=== PATIENT | male | born 1945 | race Caucasian/White ===

== ENCOUNTER 2024-10-19 18:26 | Inpatient (IN) | payer OTHER, SELFPAY ==
[2024-10-19] VITALS (10 sets, daily range): BP systolic 103–150; BP diastolic 55–82; BMI 25.3; BMI 24.7
[2024-10-19 12:28] LABS: Hematocrit 44.5 % (39.0-52.0); Hemoglobin 14.9 g/dL (13.0-18.0); Mean Corp Hgb Conc. 33.5 g/dL (33.0-37.0); Mean Corpuscular Volume 91.0 fL (80.0-94.0); Nucleated Red Blood Cells % 0 % (-); Platelet Count 204 10^3/uL (130-400); Red Cell Dist. Width 12.6 % (11.5-14.5)
[2024-10-19 12:52] LABS: ALT (SGPT) 17 U/L (0-50); AST (SGOT) 24 U/L (17-59); Albumin 4.6 g/dl (3.5-5.0); Alkaline Phosphatase 53 U/L (38-126); Blood Urea Nitrogen 26 mg/dl (9-20); Calcium 10.4 mg/dl (8.4-10.2); Carbon Dioxide 24 mmol/L (22-30); Chloride 106 mmol/L (98-107); Glucose 135 mg/dl (70-99); Potassium 4.7 mmol/L (3.5-5.1); Sodium 140 mmol/L (135-145); Total Protein 7.2 g/dl (6.3-8.2); eGFR > 60.00
[2024-10-19 13:02] LABS: Troponin I 0.120 ng/ml
--- NOTE | 2024-10-19 13:51 | ED.GENMED ---
History of Present Illness
General
Chief Complaint: Dizziness
Time Seen by Provider: 10/19/24 13:43
Nursing documentation reviewed up to this point in time: agreed with
History of Present Illness
History of Present Illness:
No 79-year-old male presents to the ER for evaluation of chest pain and dizziness which started this morning. 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 He states that at 530 this morning she required his assistance to get back
into bed. While he was helping her he noted dull ache in his left side of his chest along with a feeling of unsteadiness. He took 2 aspirin and laid back down. Upon awakening a few hours later he was still having the discomfort but thought that
it would resolve. He has no prior personal history of ACS or arrhythmia. He does take Plavix chronically, no other blood thinners. He denies any recent cough or cold symptoms. No visual changes. No paresthesias to arms or legs. He has chronic
limitation in movement of his right upper extremity due to prior injury with fusion at the joint at 90 degrees. Daughter who was present at bedside states that he was unable to walk independently due to degree of unsteadiness
Review of Systems
Review of Systems
Allergies reviewed?: Yes
Phy Exam
Physical Exam
Physical Exam:
Patient is awake, alert, appears in no acute distress, PERRL, EOMI, head is normocephalic atraumatic, conjunctiva pink, mucous membranes moist, tongue is midline, no facial asymmetry noted, no carotid bruits, no JVD, heart irrregular rate and
rhythm without murmurs, lungs are clear to auscultation no wheezes rales or rhonchi, abdomen is soft and nontender, moving extremities symmetrically without focal deficit, no dysdiadochokinesia, no ataxia, no pronator drift, GCS is 15
NIH Stroke Score
Level of Consciousness: 0 - Alert
LOC questions: 0-Answers both correctly
LOC Commands: 0-Performs both correctly
Best Gaze: 0-Normal
Visual Fraga: 0=Normal, no visual loss
Facial palsy: 0=Normal, symmetrical
Motor - Right Arm: 0=No drift 10 seconds
Motor - Left Arm: 0=No drift 10 seconds
Motor - Right Le-No drift 5 seconds
Motor - Left Le-No drift 5 seconds
Limb Ataxia: 0-Absent
Sensation: 0-Normal
Best Language: 0-No aphasia
Dysarthria: 0-Normal
Extinction and Inattention: 0-No abnormality
Total Score:: 0
Course
Orders/Labs/Results
Orders:
Orders
10/19/24 12:08
Electrocardiogram (*1) Urgent
Reason for Study: Chest Pain
EKG- Treatment ONCE
10/19/24 12:21
Complete Blood Count/With Diff Urgent
Comprehensive Metabolic Panel Urgent
Troponin I Urgent
10/19/24 13:44
Electrocardiogram (*1) Urgent
Reason for Study: Chest Pain
EKG- Treatment ONCE
10/19/24 13:50
CT Head W/o Iv Contrast Urgent
Comment:
Reason For Exam: vertigo
0.9% Sodium Chloride 1000 ml [Nss] 1,000 ml IV BOLUS
Meclizine [Antivert] 25 mg PO NOW STA
CR Chest - 2 Views Urgent
Comment:
Reason For Exam: cva
10/19/24 13:54
Magnesium Urgent
10/19/24 13:55
Troponin I Urgent
10/19/24 13:56
Diltiazem HCl [Cardizem] 5 mg IV NOW STA
10/19/24 15:05
Urinalysis Reflex To Culture Urgent
Date Specimen was Collected: 10/19/24
Time Specimen was Collected: 15:03
Urine Microscopic Reflex Cult Urgent
10/19/24 15:45
Blood Culture Q30M
CONRAD Source: Blood/Venous
Specimen Description:
10/19/24 16:14
COVID-19 Antigen Urgent
Source: Nasal Swab
Blood Culture Q30M
CONRAD Source: Blood/Venous
Specimen Description:
Abnormal Lab Results
10/19/24 10/19/24 10/19/24
12:21 13:54 13:55
WBC 20.6 H 10^3/uL
(4.8-10.8)
Abs Immat Gran (auto) 0.1 H 10^3/uL
(0-0.05)
Absolute Neuts (auto) 18.3 H 10^3/uL
(1.4-6.5)
Absolute Lymphs (auto) 1.1 L 10^3/uL
(1.2-3.4)
Absolute Monos (auto) 1.0 H 10^3/uL
(0.1-0.6)
Neutrophils % 88.9 H %
(42.2-75.2)
Lymphocytes % 5.5 L %
(20.5-51.1)
BUN 26 H mg/dl
(9-20)
Glucose 135 H mg/dl
(70-99)
Calcium 10.4 H mg/dl
(8.4-10.2)
Magnesium 2.4 H mg/dl
(1.6-2.3)
Troponin I 0.120 H* ng/ml 0.171 H* D ng/ml
Urine Bacteria (Reflex)
Urine Albumin (Reflex)
10/19/24
15:05
WBC
Abs Immat Gran (auto)
Absolute Neuts (auto)
Absolute Lymphs (auto)
Absolute Monos (auto)
Neutrophils %
Lymphocytes %
BUN
Glucose
Calcium
Magnesium
Troponin I
Urine Bacteria (Reflex) Few A
(Negative)
Urine Albumin (Reflex) 2+ A
(Neg - Trace)
10/19/24 12:21
10/19/24 12:21
White blood count significantly elevated. Creatinine preserved with elevated BUN. Troponin elevated at 0.12-EKG nonischemic
Vital Signs
Initial and Last Documented VS:
Initial Vital Signs
Temp Pulse Resp BP Pulse Ox
98.0 F 67 16 150/74 98
10/19/24 12:10 10/19/24 12:10 10/19/24 12:10 10/19/24 12:10 10/19/24 12:10
Last Documented Vital Signs
Temp Pulse Resp BP Pulse Ox
98.0 F 63 22 105/66 99
10/19/24 12:10 10/19/24 15:02 10/19/24 15:02 10/19/24 15:02 10/19/24 15:02
MDM/Problems Addressed
Differential Diagnosis Includes:
Differential diagnosis to consider but not limited to new onset atrial fibrillation, ischemic stroke, CVA, consider occult infection hypertensive emergency, ACS, along with other etiologies
*Radiology
Radiology exam reviewed: preliminary read by ED provider (I independently viewed and interpreted two-view chest x-ray showing no infiltrate, normal cardiac silhouette. I reviewed radiology interpretation which is in agreement. I independently
viewed and interpreted CT head showing no gross hemorrhage, no shift midline shift)
*Pulse Oximetry
SaO2: 97
Oxygen Mode of Delivery: Room air
Patient hypoxic: no
*EKG
Interpreted by ED Provider?: Yes (I independently viewed and interpreted twelve-lead EKG showing atrial fibrillation with a rapid response, rate 117, normal axis, no ST elevation, this is a abnormal tracing without evidence for acute NV, no prior
for compare)
*[employer] Worker Interpretation
Rate: tachycardiac (Iindependently viewed and interpreted rhythm strip showing atrial fibrillation with uncontrolled rate)
*Critical Care Note
Total Time (30-74mins, 75-104mins- exclusive of procedures): Not Applicable
Update Note
Update Note:
Patient given small dose of Cardizem with now conversion to normal sinus rhythm seen on repeated twelve-lead EKG timed 1439, rate 61, no ST elevations, this is a normal tracing
1621: Patient patient no longer having chest pain. Feeling overall improved. I discussed with patient elevation in troponin and need for further cardiac evaluation. White blood count also elevated of unclear etiology. Blood cultures and COVID
swab ordered. I reviewed full patient presentation with the hospitalist who accepts patient for admission
ED Attending Note
-
Portions of this chart may have been created with voice recognition software.� Occasional wrong word or��sound alike� substitutions may have occurred due to the inherent limitations of voice recognition software.
Discharge Plan
Departure
Patient Disposition: Admit
Date of Disposition: 10/19/24
Time of Disposition: 16:26
Presentation/result/management discussed w/ accepting MD/DO: Hospitalist
Discharge Problem:
Atrial fibrillation, Leukocytosis, Vertigo
Referrals:
Tone Ayon DO [Family Provider]
Interventions
Interventions:
*Risk Screen - Suicide Last Done: 10/19/24 12:10
*General Assessment Last Done: 10/19/24 13:40
*Neglect/Abuse Screening Last Done: 10/19/24 12:10
*ED- Fall Risk Assessment Last Done: 10/19/24 13:35
*ED COVID-19 Vaccine History Last Done: 10/19/24 13:35
ED- Neurological Assessment Last Done: 10/19/24 13:35
ED- Cardiac Assessment Last Done: 10/19/24 15:06
ED Swallowing Screen Last Done: 10/19/24 13:35
Discharge Date and Time
Print Language: WELSH
[2024-10-19] MEDS: ANTIVERT 25 MG PO (14:07)
[2024-10-19] MEDS: CARDIZEM 5 MG IV (14:07)
[2024-10-19] MEDS: NSS 1000 IV (14:08)
[2024-10-19 14:36] LABS: Magnesium 2.4 mg/dl (1.6-2.3)
[2024-10-19 14:48] LABS: Troponin I 0.171 ng/ml
[2024-10-19 15:18] LABS: Urine Character Clear (Clear)
[2024-10-19 15:25] LABS: Urine Red Blood Cell 0-2 /HPF (0-2); Urine Squamous Cell 0-2 /LPF (Few); Urine White Cell 0-2 /HPF (0-5)
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
[2024-10-19 16:54] LABS: COVID-19 Antigen Negative (Negative)
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
--- NOTE | 2024-10-19 20:15 | PTCARENOTE ---
Pt received from ED via stretcher at 1999. Pt pleasant, AAOx3, VSS, and able to ambulate into room with stand by assistance. Pt absent of pain. Pt receptive to room and call ball. Pt bed in lowest position and call aguilar within reach. Pt educated on
importance of call aguilar usage, pt relays understanding. Bed alarm placed and plugged in. Will continue with current plan of care.
[2024-10-19] MEDS: LIPITOR 40 MG PO (20:37)
[2024-10-19] MEDS: ELIQUIS 5 MG PO (20:37)
[2024-10-19 21:35] LABS: Troponin I 0.305 ng/ml
[2024-10-19] MEDS: MELATONIN 5 MG PO (21:51)
--- NOTE | 2024-10-19 22:05 | W.PN.UPDATE ---
Update Note
Progress Note Update
Trending troponins, 0.120-> 0.171 -> 0.305 @ 21:00, last read. EKG preliminary read showed NSR with Sinus arrhythmia. BP 144/59, HR 59, oral temp 98.2, resp 16, 97 on room air. Patient denies any chest pain, SOB, dizziness/lightheadedness, or
nausea. TT contractor buyer cardiology, Dr. Jannet Hayden, to update on rising troponin level. No new orders, continue to trend troponin, order next for 7 am. Order placed.
[2024-10-20 02:58] VITALS: BP 109/56
[2024-10-20 07:12] LABS: Hematocrit 39.1 % (39.0-52.0); Hemoglobin 13.3 g/dL (13.0-18.0); Mean Corp Hgb Conc. 34.0 g/dL (33.0-37.0); Mean Corpuscular Volume 89.5 fL (80.0-94.0); Nucleated Red Blood Cells % 0 % (-); Platelet Count 175 10^3/uL (130-400); Red Cell Dist. Width 12.8 % (11.5-14.5)
[2024-10-20 07:25] VITALS: BP 127/62
[2024-10-20 07:32] LABS: ALT (SGPT) 16 U/L (0-50); AST (SGOT) 21 U/L (17-59); Albumin 3.8 g/dl (3.5-5.0); Alkaline Phosphatase 52 U/L (38-126); Blood Urea Nitrogen 25 mg/dl (9-20); Calcium 9.1 mg/dl (8.4-10.2); Carbon Dioxide 23 mmol/L (22-30); Chloride 112 mmol/L (98-107); Estimated Creatinine Clearance 75 ml/min; Glucose 113 mg/dl (70-99); HDL Cholesterol 41 mg/dl; LDL Cholesterol, Calculated 98 mg/dl; Magnesium 2.4 mg/dl (1.6-2.3); Potassium 4.4 mmol/L (3.5-5.1); Sodium 139 mmol/L (135-145); Total Protein 6.0 g/dl (6.3-8.2); Very Low Density Lipoprotein 22 mg/dl (0-30); eGFR > 60.00
[2024-10-20 07:47] LABS: Troponin I 0.249 ng/ml
[2024-10-20] MEDS: ELIQUIS 5 MG PO (08:25)
[2024-10-20 10:19] LABS: Glycohemoglobin (HgbA1c) 5.7 % (4.0-5.6)
--- NOTE | 2024-10-20 11:09 | PTCARENOTE ---
Patient states he will be leaving AMA at 1400. Provider notified.
[2024-10-20 11:14] VITALS: BP 142/65
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
--- NOTE | 2024-10-20 13:23 | CM ---
CM reviewed chart, requested to check liz of Eliquis, 5mg PO BID. CM spoke with patients pharmacy, cost for one month $145.97. Patient seen bedside, very displeased with hospital stay thus far. Patient reports someone has already asked him
assessment questions twice, CM offered to leave room, patient agreeable to continue assessment. Patient caregiver for at home who has Dementia, son currently with . Patient denies use of DME, VN/SNF. PCP Tone Ayon, pharmacy [facility]
[place]. CM discussed Eliquis, can also provide $10 co-pay card. Patient not agreeable, TT to Physician. Patient confirms his daughter will provide transportation home. CM will continue to follow for all discharge planning needs.
Plan; home no needs.
--- NOTE | 2024-10-20 14:14 | PTCARENOTE ---
Discharge instructions reviewed with patient. Patient not agreeable to taking new medications, states 'i cannot be taking all of these medications, everyday'. This RN educated patient on importance of adhering to his new medication regimen and the
risks he runs of having a CVA and/or TX. Patient dismissive, and in a hurry to leave. IV removed. Patient ambulated down to main lobby for discharge to home.
--- NOTE | 2024-10-20 14:48 | PTCARENOTE ---
This RN received a phone call from the ED with patient on the phone. Despite discharge education, patient asking about medications. Patient also inquired about an Eliquis coupon card that patient had refused when offered by POPPY Vazquez. This RN
reiterated medication education and stated that CM would be willing to bring coupon card down to patient. Patient still refused and said 'Ill figure it out then.'
== END 2024-10-20 14:15 | disposition home or self-care (01) | DRG 309 ==
LOC: 4 WEST ACU 18:26
PROVIDERS: Clinical Nurse Specialist Family Health; Emergency Medicine; Nurse Practitioner Family; ADMITTING PHYSICIAN Internal Medicine; ATTENDING PHYSICIAN General Practice; CONSULT PHYSICIAN Internal Medicine Cardiovascular Disease; EMERGENCY PHYSICIAN Emergency Medicine; FAMILY PHYSICIAN Family Medicine
DX: I48.0 Paroxysmal atrial fibrillation (principal); I5A Non-ischemic myocardial injury (non-traumatic); I10 Essential (primary) hypertension; E78.5 Hyperlipidemia, unspecified; N40.0 Benign prostatic hyperplasia without lower urinary tract symptoms; Z86.73 Personal history of transient ischemic attack (TIA), and cerebral infarction without residual deficits; Z79.02 Long term (current) use of antithrombotics/antiplatelets; Z79.899 Other long term (current) drug therapy; E78.00 Pure hypercholesterolemia, unspecified; D72.829 Elevated white blood cell count, unspecified; E03.8 Other specified hypothyroidism; I73.9 Peripheral vascular disease, unspecified; Z11.52 Encounter for screening for COVID-19
CPT/HCPCS: 70450; 71046; 80053; 80061; 81003; 81015; 83036; 83735; 84439; 84443; 84484; 85025; 87040; 87811; 93005; 96361; 96374; 99285

== ENCOUNTER → 2024-12-20 10:12 | Outpatient (REF) | payer OTHER, SELFPAY | LOC: HWRCS 10:12 | PROVIDERS: ATTENDING PHYSICIAN Internal Medicine Cardiovascular Disease | DX: R07.9 Chest pain, unspecified (principal); I48.91 Unspecified atrial fibrillation; R79.89 Other specified abnormal findings of blood chemistry | CPT/HCPCS: 93306 ==

== ENCOUNTER → 2024-12-26 08:04 | Outpatient (REF) | payer OTHER, SELFPAY | LOC: HWRCS 08:04 | PROVIDERS: ATTENDING PHYSICIAN Internal Medicine Cardiovascular Disease | DX: R07.9 Chest pain, unspecified (principal); I48.91 Unspecified atrial fibrillation; R79.89 Other specified abnormal findings of blood chemistry | CPT/HCPCS: 78452; 93017; A9500 ==